=== PATIENT | female | born 2000 | race Caucasian/White ===

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

== ENCOUNTER 2020-11-26 23:48 | Emergency (ER) | payer OTHER ==
[2020-11-27] MEDS ORDERED: Sodium Chloride 0.9% 2.5 ML Syringe FLUSH PRN (00:26)
[2020-11-27] MEDS ORDERED: Sodium Chloride 0.9% 10 ML Syringe FLUSH PRN (00:26)
[2020-11-27] MEDS ORDERED: diphenhydrAMINE 50 MG/ML SDV IVPUSH ONE (00:28)
--- NOTE | 2020-11-27 00:30 | EDM.PDOC ---
ED HPI GENERAL MEDICAL PROBLEM - General Chief Complaint: Allergic Reaction Stated Complaint: DIFFICULTY BREATHING, HIVES Time Seen by Provider: 11/26/20 23:50 - History of Present Illness INITIAL COMMENTS - FREE TEXT/NARRATIVE: History of present illness: [] Patient developed shortness of breath while laying in bed. It was severe and sudden. She got up and felt like she still continued to have trouble so she came to be seen. She never made any noise with her respirations. She was not lightheaded. She did not wheeze or have stridor. Her voice is normal. The patient did not have any exposure to anything new that she had never been exposed to. Patient had urticarial type elevation of the soft tissue in her radial edge of her left wrist and in her antecubital fossa on the right. Review of systems: As per history of present illness and below otherwise all systems reviewed and negative. Past medical history: As per history of present illness and as reviewed below otherwise noncontributory. Surgical history: As per history of present illness and as reviewed below otherwise noncontributory. Social history: No reported history of drug or alcohol abuse. Family history: As per history of present illness and as reviewed below otherwise noncontributory. Physical exam: Constitutional - well developed, well-nourished and in no acute distress HEENT - normocephalic, no evidence of trauma - external nose and mouth normal - no mass in neck and no JVD - mucosae moist EYES - full EOM, PERRL, no icterus - no evidence of inflammation, injection, or drainage Respiratory - no respiratory distress, equal bilateral expansion, lungs clear to auscultation and no abnormal lung sounds Cardiovascular - Regular Rhythm with S1 and S2 appreciated and no murmur, gallop or rub. GI - abdomen soft without distension or organomegaly - normal bowel sounds - no guard or rebound Musculoskeletal no gross deformity of long bones or joints - no tenderness, swelling or edema Neurologic - Alert and oriented times four - CN II-XII grossly intact - motor sensory and coordination symmetrically normal Psychiatric - appropriate mood and affect with normal thought content Hematologic -small area of edema in erythema on the left wrist and on the right antecubital fossa no petechiae or purpura - mucosa appropriate color and sclera not pale - normal nail bed color and refill Integument - no rash or evidence of trauma - normal turgor Diagnostics: [] Therapeutics: [] Impression: [] Plan: [] Definitive disposition and diagnosis as appropriate pending reevaluation and review of above. general Pain Score (Numeric/FACES): 5 - Related Data Allergies Allergy/AdvReac Type Severity Reaction Status Date / Time No Known Allergies Allergy Verified 11/27/20 00:04 Home Meds: Home Meds Sertraline [Zoloft] 100 mg PO BEDTIME 11/27/20 [History] Zolpidem Tartrate [Ambien] 5 mg PO DAILY 11/27/20 [History] buPROPion [Wellbutrin] 300 mg PO DAILY 11/27/20 [History] Past Medical History - Past Health History Medical/Surgical History: Denies Medical/Surgical History - Past Surgical History HEENT Surgical History: Reports: Tonsillectomy Social & Family History - Family History Family Medical History: No Pertinent Family History - Caffeine Use Caffeine Use: Reports: None ED ROS ALLERGIC REACTION - Review of Systems Review Of Systems: Comprehensive ROS is negative, except as noted in HPI. ED EXAM GENERAL NO PERIP PULSE - Physical Exam Exam: See Below Text/Narrative:: My physical exam is in the HPI Course - Vital Signs Text/Narrative:: She was extremely low risk for pulmonary embolus being that she is on no exogenous hormones, has not been immobilized, has not been bedridden or in a cast, has no family or personal history of thromboembolic disease. He does have a BMI of 43.3. But the D-dimer is negative so I feel comfortable saying this patient has a nonlife-threatening cause of her dyspnea. Since she had urticaria at the time also I believe this is some sort of allergic reaction and will put her on steroids. Last Recorded V/S: Last Vital Signs Temp 36.1 C 11/27/20 00:06 Pulse 80 11/27/20 00:26 Resp 18 11/27/20 00:26 BP 151/71 H 11/27/20 00:06 Pulse Ox 97 11/27/20 00:26 - Orders/Labs/Meds Orders: Active Orders 24 hr Category Date Time Status Ketorolac [Toradol] Med 11/27/20 01:24 Once 15 mg IVPUSH ONETIME ONE Sodium Chloride 0.9% [Saline Flush] Med 11/27/20 00:26 Active 10 ml FLUSH ASDIRECTED PRN Sodium Chloride 0.9% [Saline Flush] Med 11/27/20 00:26 Active 2.5 ml FLUSH ASDIRECTED PRN Saline Lock Insert [OM.PC] Stat Oth 11/27/20 00:26 Ordered Medication Orders Sodium Chloride (Sodium Chloride 0.9% 10 Ml Syringe) 10 ml FLUSH ASDIRECTED PRN PRN Reason: Keep Vein Open Last Admin: 11/27/20 00:39 Dose: 10 ml Documented by: MILY Sodium Chloride (Sodium Chloride 0.9% 2.5 Ml Syringe) 2.5 ml FLUSH ASDIRECTED PRN PRN Reason: Keep Vein Open Last Admin: 11/27/20 00:39 Dose: 2.5 ml Documented by: MILY Labs: Laboratory Tests 11/27/20 11/27/20 11/27/20 Range/Units 00:39 00:39 00:39 WBC 11.73 H (4.0-11.0) K/uL RBC 4.42 (4.30-5.90) M/uL Hgb 11.8 L (12.0-16.0) g/dL Hct 37.2 (36.0-46.0) % MCV 84.2 (80.0-98.0) fL MCH 26.7 L (27.0-32.0) pg MCHC 31.7 (31.0-37.0) g/dL RDW Std Deviation 42.0 (28.0-62.0) fl RDW Coeff of Harshad 14 (11.0-15.0) % Plt Count 319 (150-400) K/uL MPV 9.50 (7.40-12.00) fL Neut % (Auto) 60.0 (48.0-80.0) % Lymph % (Auto) 30.3 (16.0-40.0) % [place] % (Auto) 6.8 (0.0-15.0) % Eos % (Auto) 2.6 (0.0-7.0) % Baso % (Auto) 0.3 (0.0-1.5) % Neut # (Auto) 7.0 H (1.4-5.7) K/uL Lymph # (Auto) 3.6 H (0.6-2.4) K/uL [place] # (Auto) 0.8 (0.0-0.8) K/uL Eos # (Auto) 0.3 (0.0-0.7) K/uL Baso # (Auto) 0.0 (0.0-0.1) K/uL D-Dimer, Quantitative 0.44 (0.0-0.50) mg/L FEU Sodium 139 (136-145) mmol/L Potassium 3.5 (3.5-5.1) mmol/L Chloride 104 (98-107) mmol/L Carbon Dioxide 27.2 (21.0-32.0) mmol/L BUN 9 (7.0-18.0) mg/dL Creatinine 0.9 (0.6-1.0) mg/dL Est Cr Clr Drug Dosing 71.62 mL/min Estimated GFR (MDRD) > 60.0 ml/min Glucose 107 H (74-106) mg/dL Calcium 8.5 (8.5-10.1) mg/dL Total Bilirubin 0.3 (0.2-1.0) mg/dL AST 14 L (15-37) IU/L ALT 28 (14-63) IU/L Alkaline Phosphatase 75 (46-116) U/L Total Protein 7.5 (6.4-8.2) g/dL Albumin 3.4 (3.4-5.0) g/dL Globulin 4.1 H (2.6-4.0) g/dL Albumin/Globulin Ratio 0.8 L (0.9-1.6) HCG, Qual (NEG) 11/27/20 Range/Units 00:39 WBC (4.0-11.0) K/uL RBC (4.30-5.90) M/uL Hgb (12.0-16.0) g/dL Hct (36.0-46.0) % MCV (80.0-98.0) fL MCH (27.0-32.0) pg MCHC (31.0-37.0) g/dL RDW Std Deviation (28.0-62.0) fl RDW Coeff of Harshad (11.0-15.0) % Plt Count (150-400) K/uL MPV (7.40-12.00) fL Neut % (Auto) (48.0-80.0) % Lymph % (Auto) (16.0-40.0) % [place] % (Auto) (0.0-15.0) % Eos % (Auto) (0.0-7.0) % Baso % (Auto) (0.0-1.5) % Neut # (Auto) (1.4-5.7) K/uL Lymph # (Auto) (0.6-2.4) K/uL [place] # (Auto) (0.0-0.8) K/uL Eos # (Auto) (0.0-0.7) K/uL Baso # (Auto) (0.0-0.1) K/uL D-Dimer, Quantitative (0.0-0.50) mg/L FEU Sodium (136-145) mmol/L Potassium (3.5-5.1) mmol/L Chloride (98-107) mmol/L Carbon Dioxide (21.0-32.0) mmol/L BUN (7.0-18.0) mg/dL Creatinine (0.6-1.0) mg/dL Est Cr Clr Drug Dosing mL/min Estimated GFR (MDRD) ml/min Glucose (74-106) mg/dL Calcium (8.5-10.1) mg/dL Total Bilirubin (0.2-1.0) mg/dL AST (15-37) IU/L ALT (14-63) IU/L Alkaline Phosphatase (46-116) U/L Total Protein (6.4-8.2) g/dL Albumin (3.4-5.0) g/dL Globulin (2.6-4.0) g/dL Albumin/Globulin Ratio (0.9-1.6) HCG, Qual NEGATIVE (NEG) Meds: Medications Generic Name Dose Route Start Last Admin Trade Name Freq PRN Reason Stop Dose Admin Sodium Chloride 10 ml 11/27/20 00:26 11/27/20 00:39 Sodium Chloride 0.9% 10 Ml Syringe FLUSH 10 ml ASDIRECTED PRN Administration Keep Vein Open Sodium Chloride 2.5 ml 11/27/20 00:26 11/27/20 00:39 Sodium Chloride 0.9% 2.5 Ml Syringe FLUSH 2.5 ml ASDIRECTED PRN Administration Keep Vein Open Discontinued Medications Generic Name Dose Route Start Last Admin Trade Name Freq PRN Reason Stop Dose Admin Diphenhydramine HCl 50 mg 11/27/20 00:28 11/27/20 00:38 Diphenhydramine 50 Mg/Ml Sdv IVPUSH 11/27/20 00:29 50 mg ONETIME ONE Administration Departure - Departure Time of Disposition: : Disposition: Home, Self-Care 01 Condition: Good Clinical Impression: Dyspnea, Urticaria - Discharge Information Instructions: Shortness of Breath, Adult, [id number], Hives, [id number] Referrals: Naun Ordonez MD [Primary Care Provider] - Forms: ED Department Discharge Additional Instructions: Take Benadryl 3 times a day for 2 or 3 days. Prescription for a tapering dose of steroids was sent to the pharmacy. Try to think about anything he might have been exposed to to which he might be allergic. If you get better and then suddenly get worse when you finish the steroids and most certainly is related to some sort of exposure that is ongoing. [facility] - Primary Care [address] [place] [address] [id number] [address] [address] The following information is given to patients seen in the emergency department who are being discharged to home. This information is to outline your options for follow-up care. We provide all patients seen in our emergency department with a follow-up referral. The need for follow-up, as well as the timing and circumstances, are variable depending upon the specifics of your emergency department visit. If you don't have a primary care physician on staff, we will provide you with a referral. We always advise you to contact your personal physician following an emergency department visit to inform them of the circumstance of the visit and for follow-up with them and/or the need for any referrals to a consulting specialist. The emergency department will also refer you to a specialist when appropriate. This referral assures that you have the opportunity for follow-up care with a specialist. All of these measure are taken in an effort to provide you with optimal care, which includes your follow-up. Under all circumstances we always encourage you to contact your private physician who remains a resource for coordinating your care. When calling for follow-up care, please make the office aware that this follow-up is from your recent emergency room visit. If for any reason you are refused follow-up, please contact the [facility] Emergency Department at and asked to speak to the emergency department charge nurse. Sepsis Event Note (ED) - Evaluation Sepsis Screening Result: No Definite Risk - Focused Exam Vital Signs: Vital Signs Temp Pulse Resp BP Pulse Ox 11/27/20 00:26 80 18 97 11/27/20 00:06 36.1 C 86 18 151/71 H 98 - My Orders Last 24 Hours: My Active Orders 11/27/20 00:26 Sodium Chloride 0.9% [Saline Flush] 10 ml FLUSH ASDIRECTED PRN Sodium Chloride 0.9% [Saline Flush] 2.5 ml FLUSH ASDIRECTED PRN Saline Lock Insert [OM.PC] Stat 11/27/20 01:24 Ketorolac [Toradol] 15 mg IVPUSH ONETIME ONE - Assessment/Plan Last 24 Hours: My Active Orders 11/27/20 00:26 Sodium Chloride 0.9% [Saline Flush] 10 ml FLUSH ASDIRECTED PRN Sodium Chloride 0.9% [Saline Flush] 2.5 ml FLUSH ASDIRECTED PRN Saline Lock Insert [OM.PC] Stat 11/27/20 01:24 Ketorolac [Toradol] 15 mg IVPUSH ONETIME ONE
[2020-11-27 01:10] LABS: BLOOD UREA NITROGEN,BUN 9 mg/dL (7.0-18.0); CHLORIDE,CL 104 mmol/L (98-107); GLUCOSE RANDOM 107 mg/dL (74-106); POTASSIUM,K 3.5 mmol/L (3.5-5.1); SODIUM,NA 139 mmol/L (136-145)
[2020-11-27 01:14] LABS: CARBON DIOXIDE,CO2 27.2 mmol/L (21.0-32.0)
--- NOTE | 2020-11-27 01:18 | CR ---
Indication: Dyspnea Technique: Chest 1 view Comparison: None Findings/Impression: Cardiovascular and mediastinum: Heart size and vasculature are normal in caliber and appearance. Lungs and pleural space: Lungs are clear. No sign of infiltrate or mass. No sign of pleural effusion. No pneumothorax. Bones and soft tissues: No acute findings. Dictated by Cayetano Aguilera MD @ Nov 27 2020 1:15AM Signed by Dr. Cayetano Aguilera @ Nov 27 2020 1:16AM
[2020-11-27] MEDS ORDERED: Ketorolac 30 MG/ML SDV IVPUSH ONE (01:24)
[2020-11-27] MEDS ORDERED: Ketorolac 15 MG/ML SDV IM ONE (01:38)
== END 2020-11-27 01:50 | disposition home or self-care (01) ==
LOC: MW.ED 23:48
DX: R06.02 Shortness of breath (principal); L50.9 Urticaria, unspecified
CPT/HCPCS: 36415; 71045; 80053; 84703; 85025; 85379; 96372; 96374; 99285; J1200; J1885; 99283

== ENCOUNTER 2021-01-26 21:13 | Emergency (ER) | payer OTHER ==
--- NOTE | 2021-01-26 22:05 | EDM.PDOC ---
<Nataly Real - Last Filed: 01/26/21 22:34> ED HPI GENERAL MEDICAL PROBLEM - General Chief Complaint: MANAGER PHILOSOPHY Problem Stated Complaint: PELVIC PAIN Time Seen by Provider: 01/26/21 21:26 Source of Information: Reports: Patient History Limitations: Reports: No Limitations - History of Present Illness INITIAL COMMENTS - FREE TEXT/NARRATIVE: HISTORY AND PHYSICAL: History of present illness: Patient is a 20-year-old female who resents emergency room today with concern of right-sided abdominal pain/pelvic pain that has started since last night and constant. Patient describes as sharp and stabbing and constant. Patient notes that she has had a few episodes of non bloody diarrhea since the onset of the discomfort. Patient states that she has not taken anything for her symptoms. Patient states that she did break-up with her boyfriend approximately 1 month ago as he sexually had cheated on patient. Patient states that she has not been sexually active since and he does not have a new sexual partner. Denies any other symptoms or concerns. Patient denies fever, chills, chest pain, shortness of breath, or cough. Denies headache, neck stiff ness, change in vision, syncope, or near syncope. Denies nausea, vomiting, diarrhea, constipation, or dysuria. Has not noted any blood in urine or stool. Patient has been eating and drinking appropriately. Review of systems: As per history of present illness and below otherwise all systems reviewed and negative. Past medical history: As per history of present illness and as reviewed below otherwise noncontributory. Surgical history: As per history of present illness and as reviewed below otherwise noncontributory. Social history: See social history for further information Family history: As per history of present illness and as reviewed below otherwise noncontributory. Physical exam: General: Patient is alert, oriented, and in no acute distress. Patient sitting comfortably on exam table, anxious appearing and tearful on exam. Tachycardic 110s on exam otherwise, vitals stable and reviewed by me. HEENT: Atraumatic, normocephalic, pupils equal and reactive bilaterally, n egative for conjunctival pallor or scleral icterus, mucous membranes moist, TMs normal bilaterally, throat clear, neck supple, nontender, trachea midline. No drooling or trismus noted. No meningeal signs. No hot potato voice noted. Lungs: Clear to auscultation, breath sounds equal bilaterally, chest nontender. Heart: S1S2, regular rate and rhythm without overt murmur Abdomen: Soft, nondistended, moderate RLQ tenderness to palpation with negative rebound/negative siegel sign. Negative for masses or hepatosplenomegaly. Negative for costovertebral tenderness. Pelvis: Stable nontender. Genitourinary: Pelvic exam performed by PA student Naun Schuler observed and supervised directly by me. External genitalia grossly unremarkable. There is a small amount of dark blood in the vaginal vault. Cervical motion tenderness noted with positive chandelier sign concerning for PID. Significant right adnexal tenderness on exam. Rectal: Deferred. Skin: Intact, warm, dry. No lesions or rashes noted. Extremities: Atraumatic, negative for cords or calf pain. Neurovascular unremarkable. Neuro: Awake, alert, oriented. Cranial nerves II through XII unremarkable. Cerebellum unremarkable. Motor and sensory unremarkable throughout. Exam nonfocal. Notes: Patient is a 20-year-old female who presents to the ED today secondary to sharp constant right lower quadrant/right sided pelvic pain that began last night. Upon arrival to the ED, patient is noted to be mildly tachycardic 110s on exam, otherwise is vitally stable. On exam, she is noted to have significant right lower quadrant tenderness and on pelvic exam noted to have cervical motion tenderness with a positive chandelier sign consistent with pelvic inflammatory disease. Will obtain basic lab work as well as TVUS, gonorrhea/chlymidia, aff irm, abd/pelvic CT w cont as well as initiate fluid bolus and rocephin. On urinalysis, patient does have trace leukocyte Estrace with 0 red blood cells and white blood cells. hCG is negative. Dr. Escobar has assumed care of patient pending all blood work, ultrasound, and CT scan. He will follow remaining treatment and disposition for patient. Although uncertain of patient disposition for potential admission versus discharged home pending TOA concern, I will send a prescription for doxycycline and Flagyl for PID in the instance of d/c to home. See Dr. Escobar dictation for further treatment / disposition. Diagnostics: CBC, CMP, UA, urine hCG/quant, lipase, Affirm, G&C, TVUS, Abd/pelvic CT w cont Therapeutics: NS, Toradol, Morphine, Rocephin Prescription: Doxycycline, Flagyl Impression: Pelvic inflammatory disease Plan: Definitive disposition and diagnosis as appropriate pending reevaluation and review of above. pelvic Pain Score (Numeric/FACES): 7 - Related Data Allergies Allergy/AdvReac Type Severity Reaction Status Date / Time acetaminophen Allergy Vomiting Verified 01/26/21 22:07 Home Meds: Home Meds Sertraline [Zoloft] 100 mg PO BEDTIME 11/27/20 [History] Zolpidem Tartrate [Ambien] 5 mg PO DAILY 11/27/20 [History] Doxycycline [Vibramycin] 100 mg PO BID 14 Days #28 cap 01/26/21 [Rx] metroNIDAZOLE [Flagyl] 500 mg PO Q12H 14 Days #28 tab 01/26/21 [Rx] Past Medical History - Past Health History Medical/Surgical History: Denies Medical/Surgical History - Past Surgical History HEENT Surgical History: Reports: Tonsillectomy Social & Family History - Family History Family Medical History: No Pertinent Family History - Caffeine Use Caffeine Use: Reports: None ED ROS GENERAL - Review of Systems Review Of Systems: Comprehensive ROS is negative, except as noted in HPI. ED EXAM, GENERAL - Physical Exam Exam: See Below (see dictation) Departure - Departure Disposition: Home, Self-Care 01 Clinical Impression: Pelvic inflammatory disease - Discharge Information Prescriptions: metroNIDAZOLE [Flagyl] 500 mg PO Q12H 14 Days #28 tab Doxycycline [Vibramycin] 100 mg PO BID 14 Days #28 cap Instructions: Pelvic Inflammatory Disease, [id number]-[id number] Referrals: Naun Ordonez MD [Primary Care Provider] - Forms: ED Department Discharge Additional Instructions: [facility] [address] [place] [id number] [address] [facility] [address] [place] [id number] [id number] The following information is given to patients seen in the emergency department who are being discharged to home. This information is to outline your options for follow-up care. We provide all patients seen in our emergency department with a follow-up referral. The need for follow-up, as well as the timing and circumstances, are variable depending upon the specifics of your emergency department visit. If you don't have a primary care physician on staff, we will provide you with a referral. We always advise you to contact your personal physician following an emergency department visit to inform them of the circumstance of the visit and for follow-up with them and/or the need for any referrals to a consulting specialist. The emergency department will also refer you to a specialist when appropriate. This referral assures that you have the opportunity for follow-up care with a specialist. All of these measure are taken in an effort to provide you with optimal care, which includes your follow-up. Under all circumstances we always encourage you to contact your private physician who remains a resource for coordinating your care. When calling for follow-up care, please make the office aware that this follow-up is from your recent emergency room visit. If for any reason you are refused follow-up, please contact the [facility] Emergency Department at and asked to speak to the emergency department charge nurse. <Jr Escobar - Last Filed: 01/26/21 23:53> Course - Vital Signs Text/Narrative:: [id number] the patient was sent to ultrasound by my partner who felt she was more tender on the right than the left and therefore wanted to rule out TOA before we decided to send her home with a diagnosis of PID. Ultrasound failed to reveal any TOA or torsed ovary. Last Recorded V/S: Last Vital Signs Temp 36.3 C 01/26/21 21:59 Pulse 99 01/26/21 21:59 Resp 16 01/26/21 21:59 BP 150/94 H 01/26/21 21:59 Pulse Ox 98 01/26/21 21:59 - Orders/Labs/Meds Orders: Active Orders 24 hr Category Date Time Status Abdomen Pelvis w Cont [CT] Stat Exams 01/26/21 22:18 Ordered CHLAMYDIA AND GONORRHEA BY TMA Stat Lab 01/26/21 22:30 Received CULTURE URINE [MREF] Stat Lab 01/26/21 21:29 Received TRICH/BETH/CAND BY DNA PROBE [MOLEC] Stat Lab 01/26/21 22:30 Received Labs: Laboratory Tests 01/26/21 01/26/21 01/26/21 Range/Units 21:29 21:29 22:45 WBC 13.76 H (4.0-11.0) K/uL RBC 4.66 (4.30-5.90) M/uL Hgb 12.9 (12.0-16.0) g/dL Hct 39.7 (36.0-46.0) % MCV 85.2 (80.0-98.0) fL MCH 27.7 (27.0-32.0) pg MCHC 32.5 (31.0-37.0) g/dL RDW Std Deviation 45.5 (28.0-62.0) fl RDW Coeff of Harshad 15 (11.0-15.0) % Plt Count 381 (150-400) K/uL MPV 10.30 (7.40-12.00) fL Neut % (Auto) 56.0 (48.0-80.0) % Lymph % (Auto) 27.9 (16.0-40.0) % [place] % (Auto) 7.2 (0.0-15.0) % Eos % (Auto) 8.2 H (0.0-7.0) % Baso % (Auto) 0.7 (0.0-1.5) % Neut # (Auto) 7.7 H (1.4-5.7) K/uL Lymph # (Auto) 3.8 H (0.6-2.4) K/uL [place] # (Auto) 1.0 H (0.0-0.8) K/uL Eos # (Auto) 1.1 H (0.0-0.7) K/uL Baso # (Auto) 0.1 (0.0-0.1) K/uL Nucleated RBC % 0.0 /100WBC Nucleated RBCs # 0 K/uL Sodium (136-145) mmol/L Potassium (3.5-5.1) mmol/L Chloride (98-107) mmol/L Carbon Dioxide (21.0-32.0) mmol/L BUN (7.0-18.0) mg/dL Creatinine (0.6-1.0) mg/dL Est Cr Clr Drug Dosing mL/min Estimated GFR (MDRD) ml/min Glucose (74-106) mg/dL Calcium (8.5-10.1) mg/dL Total Bilirubin (0.2-1.0) mg/dL AST (15-37) IU/L ALT (14-63) IU/L Alkaline Phosphatase (46-116) U/L Total Protein (6.4-8.2) g/dL Albumin (3.4-5.0) g/dL Globulin (2.6-4.0) g/dL Albumin/Globulin Ratio (0.9-1.6) Lipase (73-393) U/L HCG, Quant mIU/mL Urine Color YELLOW Urine Appearance CLEAR Urine pH 5.5 (5.0-8.0) Ur Specific Cope 1.010 (1.001-1.035) Urine Protein NEGATIVE (NEGATIVE) mg/dL Urine Glucose (UA) NEGATIVE (NEGATIVE) mg/dL Urine Ketones NEGATIVE (NEGATIVE) mg/dL Urine Occult Blood SMALL H (NEGATIVE) Urine Nitrite NEGATIVE (NEGATIVE) Urine Bilirubin NEGATIVE (NEGATIVE) Urine Urobilinogen 0.2 (<2.0) EU/dL Ur Leukocyte Esterase TRACE H (NEGATIVE) Urine RBC 0-2 (0-2/HPF) Urine WBC 0-3 (0-5/HPF) Ur Epithelial Cells OCCASIONAL (NONE-FEW) Urine Bacteria FEW (NEGATIVE) Urine HCG, Qual NEGATIVE (NEGATIVE) 01/26/21 01/26/21 Range/Units 22:45 22:45 WBC (4.0-11.0) K/uL RBC (4.30-5.90) M/uL Hgb (12.0-16.0) g/dL Hct (36.0-46.0) % MCV (80.0-98.0) fL MCH (27.0-32.0) pg MCHC (31.0-37.0) g/dL RDW Std Deviation (28.0-62.0) fl RDW Coeff of Harshad (11.0-15.0) % Plt Count (150-400) K/uL MPV (7.40-12.00) fL Neut % (Auto) (48.0-80.0) % Lymph % (Auto) (16.0-40.0) % [place] % (Auto) (0.0-15.0) % Eos % (Auto) (0.0-7.0) % Baso % (Auto) (0.0-1.5) % Neut # (Auto) (1.4-5.7) K/uL Lymph # (Auto) (0.6-2.4) K/uL [place] # (Auto) (0.0-0.8) K/uL Eos # (Auto) (0.0-0.7) K/uL Baso # (Auto) (0.0-0.1) K/uL Nucleated RBC % /100WBC Nucleated RBCs # K/uL Sodium 144 (136-145) mmol/L Potassium 3.8 (3.5-5.1) mmol/L Chloride 106 (98-107) mmol/L Carbon Dioxide 25.5 (21.0-32.0) mmol/L BUN 6 L (7.0-18.0) mg/dL Creatinine 0.9 (0.6-1.0) mg/dL Est Cr Clr Drug Dosing 71.62 mL/min Estimated GFR (MDRD) > 60.0 ml/min Glucose 95 (74-106) mg/dL Calcium 9.0 (8.5-10.1) mg/dL Total Bilirubin 0.2 (0.2-1.0) mg/dL AST 15 (15-37) IU/L ALT 32 (14-63) IU/L Alkaline Phosphatase 72 (46-116) U/L Total Protein 8.2 (6.4-8.2) g/dL Albumin 3.7 (3.4-5.0) g/dL Globulin 4.5 H (2.6-4.0) g/dL Albumin/Globulin Ratio 0.8 L (0.9-1.6) Lipase 40 L (73-393) U/L HCG, Quant < 1.0 mIU/mL Urine Color Urine Appearance Urine pH (5.0-8.0) Ur Specific Cope (1.001-1.035) Urine Protein (NEGATIVE) mg/dL Urine Glucose (UA) (NEGATIVE) mg/dL Urine Ketones (NEGATIVE) mg/dL Urine Occult Blood (NEGATIVE) Urine Nitrite (NEGATIVE) Urine Bilirubin (NEGATIVE) Urine Urobilinogen (<2.0) EU/dL Ur Leukocyte Esterase (NEGATIVE) Urine RBC (0-2/HPF) Urine WBC (0-5/HPF) Ur Epithelial Cells (NONE-FEW) Urine Bacteria (NEGATIVE) Urine HCG, Qual (NEGATIVE) Meds: Medications Discontinued Medications Generic Name Dose Route Start Last Admin Trade Name Freq PRN Reason Stop Dose Admin Sodium Chloride 1,000 mls @ 999 mls/hr 01/26/21 22:17 01/26/21 22:47 Normal Saline IV 01/26/21 23:17 999 mls/hr STAT ONE Administration Ceftriaxone Sodium/Dextrose 1 50 mls @ 100 mls/hr 01/26/21 22:37 01/26/21 22:48 gm/ Premix IV 01/26/21 23:06 100 mls/hr ONETIME ONE Administration Ketorolac Tromethamine 30 mg 01/26/21 22:16 01/26/21 22:49 Ketorolac 30 Mg/Ml Sdv IVPUSH 01/26/21 22:17 30 mg ONETIME ONE Administration Morphine Sulfate 4 mg 01/26/21 22:16 01/26/21 22:48 Morphine 4 Mg/Ml Syringe IVPUSH 01/26/21 22:17 4 mg ONETIME ONE Administration Departure - Departure Time of Disposition: 23:53 Condition: Good Sepsis Event Note (ED) - Focused Exam Vital Signs: Vital Signs Temp Pulse Resp BP Pulse Ox 01/26/21 21:59 36.3 C 99 16 150/94 H 98
[2021-01-26] MEDS ORDERED: Ketorolac 30 MG/ML SDV IVPUSH ONE (22:16)
[2021-01-26] MEDS ORDERED: Morphine 4 MG/ML Syringe IVPUSH ONE (22:16)
[2021-01-26] MEDS ORDERED: Sodium Chloride 0.9% 1,000 ML IV ONE (22:17)
[2021-01-26] MEDS ORDERED: cefTRIAXone 1 GM in Premix Bag 1 BAG IV ONE (22:37)
[2021-01-26 23:14] LABS: BLOOD UREA NITROGEN,BUN 6 mg/dL (7.0-18.0); CARBON DIOXIDE,CO2 25.5 mmol/L (21.0-32.0); CHLORIDE,CL 106 mmol/L (98-107); GLUCOSE RANDOM 95 mg/dL (74-106); LIPASE 40 U/L (73-393); POTASSIUM,K 3.8 mmol/L (3.5-5.1); SODIUM,NA 144 mmol/L (136-145)
--- NOTE | 2021-01-26 23:47 | US ---
INDICATION: RT SIDED PELVIC PAIN, CLINICAL PID PELVIC ULTRASOUND Technique: Multiple transvaginal sonographic images of the pelvis were performed. Findings: The uterus is normal in size and contour, measuring 7.2 x 3.7 x 2.6cm. No uterine masses are identified. The endometrium measures 5mm in thickness and appears homogeneous. The ovaries appear normal bilaterally. Color and spectral Doppler blood flow is noted in both ovaries. No adnexal masses are evident. No significant free pelvic fluid is identified. IMPRESSION: Normal pelvic ultrasound. CHRISTINA CORMIER MD [employer] Dictated by: Jose Cormier MD @ 01/26/2021 23:46:23 (Electronically Signed)
[2021-01-26] MEDS ORDERED: Iopamidol 755 MG/ML 500 ML Multipack Bottle IVPUSH STA (23:52)
--- NOTE | 2021-01-27 00:29 | CT ---
INDICATION: RLQ PAIN CT ABDOMEN AND PELVIS WITH CONTRAST TECHNIQUE: Multidetector CT imaging was performed through the abdomen and pelvis following intravenous contrast administration using 100ml Isovue 370. Coronal and sagittal reconstructions were generated. COMPARISON: None. FINDINGS: Included portions of the lower chest show the lung bases to be clear. The liver, spleen, gallbladder, pancreas, adrenals, and kidneys show no significant findings. Bowel loops are of normal caliber and demonstrate no wall thickening. The appendix is normal. No free fluid or free air is identified. The abdominal aorta appears normal in caliber. No abnormally enlarged lymph nodes are seen. The urinary bladder, uterus, and adnexal regions are within normal limits. Visualized bones show no acute findings. IMPRESSION: No acute abnormality identified. Normal appendix. No cause for the patient`s symptoms is evident. CHRISTINA CORMIER MD [employer] [facility] Dictated by: Jose Cormier MD @ 01/27/2021 00:28:42 (Electronically Signed)
[2021-01-28 12:07] LABS: C.TRACHOMATIS BY TMA Negative (Negative); N.GONORRHOEAE BY TMA Negative (Negative)
== END 2021-01-27 00:08 | disposition home or self-care (01) ==
LOC: MW.ED 21:13
DX: N73.9 Female pelvic inflammatory disease, unspecified (principal); Z88.6 Allergy status to analgesic agent; Z79.899 Other long term (current) drug therapy
CPT/HCPCS: 36415; 74177; 76830; 80053; 81001; 81025; 83690; 84702; 85025; 87086; 87480; 87491; 87510; 87591; 87660; 96365; 96375; 99284; J0696; J1885; J2270; J7030; Q9967; 99283

== ENCOUNTER 2021-04-26 10:14 | Emergency (ER) | payer MEDICAID, OTHER ==
--- NOTE | 2021-04-26 11:57 | CR ---
INDICATION: Shortness of breath. TECHNIQUE: Chest 1 view. COMPARISON: 11/27/2020. FINDINGS: Cardiovascular and mediastinum: Heart size and vasculature are normal in caliber and appearance. Mediastinum is within normal limits. Lungs and pleural space: Lungs are clear. No sign of infiltrate or mass. No sign of pleural effusion. No pneumothorax. Bones and soft tissues: No significant findings. IMPRESSION: Lungs are clear. Dictated by Naun Briggs MD @ 04/26/2021 11:55:32 AM (Electronically Signed)
--- NOTE | 2021-04-26 12:57 | EDM.PDOC ---
ED HPI GENERAL MEDICAL PROBLEM - General Chief Complaint: Respiratory Problem Stated Complaint: CONGESTION,TROUBLE BREATHING Time Seen by Provider: 04/26/21 10:19 Source of Information: Reports: Patient History Limitations: Reports: No Limitations - History of Present Illness INITIAL COMMENTS - FREE TEXT/NARRATIVE: 21-year-old female past medical history depression presents for cough, shortness of breath, sore throat. Patient notes that she was exposed to someone with pneumonia is concerned that she might have a. She denies fevers. She denies difficulty breathing. - Related Data Allergies Allergy/AdvReac Type Severity Reaction Status Date / Time acetaminophen Allergy Vomiting Verified 04/26/21 12:45 Home Meds: Home Meds Sertraline [Zoloft] 100 mg PO BEDTIME 11/27/20 [History] Zolpidem Tartrate [Ambien] 5 mg PO DAILY 11/27/20 [History] predniSONE 40 mg PO DAILY #10 tab 04/26/21 [Rx] Past Medical History - Past Health History Medical/Surgical History: Denies Medical/Surgical History Psychiatric History: Reports: Anxiety - Past Surgical History HEENT Surgical History: Reports: Tonsillectomy Social & Family History - Family History Family Medical History: No Pertinent Family History - Caffeine Use Caffeine Use: Reports: None ED ROS GENERAL - Review of Systems Review Of Systems: Comprehensive ROS is negative, except as noted in HPI. ED EXAM, GENERAL - Physical Exam Exam: See Below Exam Limited By: No Limitations General Appearance: Alert, WD/WN, No Apparent Distress Ears: Hearing Grossly Normal Nose: Normal Inspection Throat/Mouth: Normal Inspection, Normal Oropharynx, Normal Voice, No Airway Compromise Head: Atraumatic, Normocephalic Neck: Normal Inspection Respiratory/Chest: No Respiratory Distress, Lungs Clear, Normal Breath Sounds, No Accessory Muscle Use Cardiovascular: Normal Peripheral Pulses, Regular Rate, Rhythm Extremities: Normal Inspection Neurological: Alert, Normal Cognition, Normal Gait Psychiatric: Normal Affect, Normal Mood Skin Exam: Warm, Dry, Intact, Normal Color Course - Vital Signs Last Recorded V/S: Last Vital Signs Temp 96.9 F 04/26/21 12:48 Pulse 94 04/26/21 12:48 Resp 17 04/26/21 12:48 BP 144/85 H 04/26/21 12:48 Pulse Ox 98 04/26/21 12:48 - Orders/Labs/Meds Labs: Laboratory Tests 04/26/21 Range/Units 11:46 SARS-CoV-2 RNA ([facility]) NEGATIVE (NEGATIVE) Departure - Departure Time of Disposition: 12:54 Disposition: Home, Self-Care 01 Condition: Good Clinical Impression: Bronchitis - Discharge Information Prescriptions: predniSONE 40 mg PO DAILY #10 tab Instructions: Acute Bronchitis, Adult Referrals: Naun Ordonez MD [Primary Care Provider] - Additional Instructions: The following information is given to patients seen in the emergency department who are being discharged to home. This information is to outline your options for follow-up care. We provide all patients seen in our emergency department with a follow-up referral. The need for follow-up, as well as the timing and circumstances, are variable depending upon the specifics of your emergency department visit. If you don't have a primary care physician on staff, we will provide you with a referral. We always advise you to contact your personal physician following an emergency department visit to inform them of the circumstance of the visit and for follow-up with them and/or the need for any referrals to a consulting specialist. The emergency department will also refer you to a specialist when appropriate. This referral assures that you have the opportunity for follow-up care with a specialist. All of these measure are taken in an effort to provide you with optimal care, which includes your follow-up. Under all circumstances we always encourage you to contact your private physician who remains a resource for coordinating your care. When calling for follow-up care, please make the office aware that this follow-up is from your recent emergency room visit. If for any reason you are refused follow-up, please contact the [facility] Emergency Department at and asked to speak to the emergency department charge nurse. Please follow up with your primary care physician. If you do not have a primary care physician, see below: [facility] [address] [place] [address] [id number] [facility] [address] [place] [address] [facility] [address] [place] [address] Sepsis Event Note (ED) - Focused Exam Vital Signs: Vital Signs Temp Pulse Resp BP Pulse Ox 04/26/21 12:48 96.9 F 94 17 144/85 H 98
== END 2021-04-26 13:00 | disposition home or self-care (01) ==
LOC: MW.ED 10:14
DX: J40 Bronchitis, not specified as acute or chronic (principal); Z88.8 Allergy status to other drugs, medicaments and biological substances; Z20.822 Contact with and (suspected) exposure to COVID-19
CPT/HCPCS: 71045; 71045-26; 99283-25; U0002

== ENCOUNTER 2021-10-17 16:07 | Emergency (ER) | payer SELFPAY | END 2021-10-17 16:29 | disposition home or self-care (01) | LOC: MW.ED 16:07 | DX: L50.9 Urticaria, unspecified (principal); Z91.018 Allergy to other foods; Z88.8 Allergy status to other drugs, medicaments and biological substances | CPT/HCPCS: 99282 ==

== ENCOUNTER 2022-03-25 11:39 | Emergency (ER) | payer SELFPAY | END 2022-03-25 12:15 | disposition home or self-care (01) | LOC: MW.ED 11:39 | DX: L20.9 Atopic dermatitis, unspecified (principal); Z91.018 Allergy to other foods; Z88.6 Allergy status to analgesic agent; Z86.16 Personal history of COVID-19 | CPT/HCPCS: 99282 ==